=== PATIENT | female | born 1965 | race Caucasian/White ===

== ENCOUNTER 2024-11-02 17:57 | Inpatient (IN) | payer BC, SELFPAY ==
[2024-11-02] VITALS (8 sets, daily range): BP systolic 104–134; BP diastolic 56–79; BMI 28.4; BMI 27.5
[2024-11-02 15:06] LABS: % Basophils 0.6 % (0-2); % Eosinophils 1.7 % (0-6); % Immature Granulocytes 0.5 % (0-0.5); % Lymphocytes 28.9 % (20.5-51.1); % Monocytes 4.4 % (1.7-9.3); % Neutrophils 63.9 % (42.2-75.2); Absolute Eosinophils 0.1 10^3/uL (0-0.7); Absolute Lymphocytes 1.9 10^3/uL (1.2-3.4); Absolute Monocytes 0.3 10^3/uL (0.1-0.6); Absolute Neutrophils 4.1 10^3/uL (1.4-6.5); Hematocrit 20.7 % (37.0-47.0); Hemoglobin 6.6 g/dL (12.0-16.0); Mean Corp Hgb Conc. 31.9 g/dL (33.0-37.0); Mean Corpuscular Hgb 33.2 pg (27.0-31.0); Mean Platelet Volume 8.2 fL (7.4-10.4); Nucleated Red Blood Cells % 0 %; Platelet Count 373 10^3/uL (130-400); Red Blood Cell Count 1.99 10^6/uL (4.20-5.40); Red Cell Dist. Width 17.3 % (11.5-14.5); White Blood Cell Count 6.4 10^3/uL (4.8-10.8)
[2024-11-02 15:12] LABS: ALT (SGPT) 28 U/L (0-35); AST (SGOT) 49 U/L (14-36); Albumin 4.3 g/dl (3.5-5.0); Alkaline Phosphatase 64 U/L (38-126); Blood Urea Nitrogen 21 mg/dl (7-17); Calcium 9.5 mg/dl (8.4-10.2); Carbon Dioxide 28 mmol/L (22-30); Chloride 105 mmol/L (98-107); Estimated Creatinine Clearance 65 ml/min; Glucose 112 mg/dl (70-99); Potassium 3.9 mmol/L (3.5-5.1); Sodium 139 mmol/L (135-145); Total Bilirubin 2.5 mg/dl (0.2-1.3); Total Protein 6.5 g/dl (6.3-8.2); eGFR > 60.00
--- NOTE | 2024-11-02 15:51 | ED.GENMED ---
History of Present Illness
General
Chief Complaint: Abnormal Lab Value
Source: patient
Exam Limitations: none
Time Seen by Provider: 11/02/24 14:09
History of Present Illness
History of Present Illness:
58yoF with a history of anemia presenting for evaluation of an abnormal outpatient lab. Patient had preadmission testing earlier today for a cardiac catheterization scheduled for November 16. She was found to have a hemoglobin of 6.7 and was called
and advised to report to the ED for evaluation. Hemoglobin was 11.1 on last CBC on 06/06/2024. Patient is symptomatic fatigue and generalized weakness. This initially started end of June into July. She also reports dyspnea primarily with
walking up steps and intermittent chest pains. She had an outpatient stress test about 10 days ago and there were some irregularities seen which was the reason for the planned cardiac catheterization. Patient denies any hematochezia, melena,
hematuria. No prior history of anemia.
Phy Exam
General Physical Exam
General Presentation: well appearing and no apparent distress
General age: appears stated age
General Skin: warm and dry
General Habitus: normal
General Mental: alert
ENT Exam
ENT Exam: normocephalic
Cardiovascular Exam
Cardiovascular Exam: regular rate/rhythm and no murmur
Pulmonary Exam
Pulmonary Exam: lungs clear, no respiratory distress, no rales, no crackles, no rhonchi and no wheezing
Gastrointestinal Exam
Stool: other (Stool brown. Hemoccult testing negative.)
Lizzie Coma Scale
Eye Opening: Spontaneous
Verbal Response: Oriented
Motor Response: Obeys Commands
GCS Total Score: 15
Skin Exam
Skin Exam: normal color and warm/dry
Psychiatric Exam
Psychiatric Exam: normal mood/affect
Course
Orders/Labs/Results
Orders:
Orders
11/02/24 14:51
Atypical Antibody Screen Urgent
BBK Wristband Number:
Type+Screen Urgent
Complete Blood Count/With Diff Urgent
Comprehensive Metabolic Panel Urgent
Ferritin Urgent
Comment: ADD ON
Folate Urgent
Comment: ADD ON
Iron Urgent
Comment: ADD ON
Total Iron Binding Urgent
Comment: ADD ON
Vitamin B12 Urgent
Comment: ADD ON
11/02/24 Dinner
Regular
At Your Request: Full Participation
11/02/24 15:10
ABO2 Urgent
BBK Wristband Number:
Associate notified that ABO2 has been ordered: [id number]
Date: 11/02/24
Time: 15:02
Prison Warden ID: [id number]
11/02/24 15:51
Blood Bank Products [* Blood Bank Products] Urgent
Blood Bank Products: *Packed RBC Leuko(PRBC's)
Quantity: 1
Transfuse Today: Yes
Reason: Anemia
11/02/24 16:14
Admit/Transfer Patient As Directed
Co-Sign Provider:
Level of Care: Inpatient admission
Assign to:: Telemetry
Physician / Group: clara
Diagnosis: anemia
Reason for Telemetry: Chest Pain syndromes
Date to Stop Telemetry: 11/04/24
Time to Stop Telemetry: 11:00
Reason for Hospitalization: anemia
Expected length of stay greater than two midnights?: Yes
ELOS- Estimated Length of Stay in days: 2
I certify the patient meets the requirements for IP care: Yes
11/02/24 16:15
Code Status As Directed
Resuscitation Status: Full Code
PRN Pain Medication Management As Directed
May give lesser potent ordered pain med per pt: Yes
preference::
Protocol:: Medication orders for pain may be administered in a
manner that supports deferring to patient preference
when the pt is:
- Requesting an ordered lesser potent pain medication.
Least to most potent pain medications are defined
as: acetaminophen < NSAID < tramadol < opioids
(morphine, oxycodone, hydromorphone).
- Requesting a lesser dose of the same medication IF
ORDERED.
- Requesting a less intrusive route of administration
if both routes are prescribed by the provider (PO <
IV).
11/02/24 16:21
Add On- LAB Urgent
Tests Added?: ferritin, folate, iron, TIBC, B12
GASTROINTESTINAL CONSULT Routine
Consulting Provider: Josias Pearce
Was physician already notified: Yes
11/02/24 18:12
Activity As Directed
Activity Level: As Tolerated
Pneumatic Compression Sleeves As Directed
Type: Knee high
Vital Signs As Directed
Frequency: Per unit guidelines
DX Deep Vein Thrombosis Video Routine
11/02/24 22:00
Cyclobenzaprine HCl [Flexeril] 10 mg PO HS
Valacyclovir HCl [Valtrex] 500 mg PO HS
11/03/24 Breakfast
NPO
Allow oral meds: Yes
Allow clear liquids: Sips of Clears
Complete Blood Count/With Diff IN AM
Comprehensive Metabolic Panel IN AM
11/03/24 08:00
Amlodipine [Norvasc] 2.5 mg PO DAILY
Atorvastatin [Lipitor] 10 mg PO DAILY
ISOSORBIDE MONOnitrate ER [Imdur (Extended Release)] 15 mg PO DAILY
Losartan/Hydrochlorothiazide [Hyzaar 100-25 Tablet] 1 tab PO DAILY
11/04/24 11:00
DC Protocol for Telemetry ONCE
Abnormal Lab Results
11/02/24
14:51
RBC 1.99 L 10^6/uL
(4.20-5.40)
Hgb 6.6 L* g/dL
(12.0-16.0)
Hct 20.7 L* %
(37.0-47.0)
MCV 104.0 H fL
(81.0-99.0)
MCH 33.2 H pg
(27.0-31.0)
MCHC 31.9 L g/dL
(33.0-37.0)
RDW 17.3 H %
(11.5-14.5)
BUN 21 H mg/dl
(7-17)
Glucose 112 H mg/dl
(70-99)
Total Bilirubin 2.5 H mg/dl
(0.2-1.3)
AST 49 H U/L
(14-36)
Folate > 20.0 H ng/ml
(2.76-20)
SNEHA, Complement 1+ A
(Negative)
Crossmatch IS Only See Detail
11/02/24 14:51
11/02/24 14:51
Vital Signs
Initial and Last Documented VS:
Initial Vital Signs
Temp Pulse Resp BP Pulse Ox
97.8 F 98 16 122/73 100
11/02/24 12:40 11/02/24 12:40 11/02/24 12:40 11/02/24 12:40 11/02/24 12:40
Last Documented Vital Signs
Temp Pulse Resp BP Pulse Ox
98.6 F 86 16 104/56 95
11/02/24 23:05 11/02/24 23:05 11/02/24 23:05 11/02/24 23:05 11/02/24 23:05
MDM/Problems Addressed
Differential Diagnosis Includes:
58yoF presenting for a hemoglobin of 6.7 found on routine outpatients labs. C/o fatigue and exertional dyspnea x several months. Denies bleeding. She is well-appearing no acute distress. She is afebrile and hemodynamically stable. Stool is brown
and Hemoccult negative. Differential diagnosis includes but is not limited to: Blood loss anemia, iron deficiency anemia, anemia of chronic disease, hemolytic anemia
Initial ED plan: Lab work obtained in triage and repeat hemoglobin is 6.6. Consent obtained and 1 unit PRBCs ordered for transfusion. Will admit for further evaluation and management.
*Critical Care Note
Total Time (30-74mins, 75-104mins- exclusive of procedures): Not Applicable
ED Attending Note
-
Portions of this chart may have been created with voice recognition software.� Occasional wrong word or��sound alike� substitutions may have occurred due to the inherent limitations of voice recognition software.
Discharge Plan
Departure
Patient Disposition: Admit
Date of Disposition: 11/02/24
Time of Disposition: 15:55
Presentation/result/management discussed w/ accepting MD/DO: Hospitalist
Discharge Problem:
Symptomatic anemia
Interventions
Interventions:
*General Assessment Last Done: 11/02/24 14:42
*Neglect/Abuse Screening Last Done: 11/02/24 12:43
ED- Fall Risk Assessment Last Done: 11/02/24 14:56
*Nursing Disposition Last Done: 11/02/24 18:02
Discharge Date and Time
Discharge Date/Time: 11/02/24 18:03
--- NOTE | 2024-11-02 16:17 | HPS.HSE ---
Addendum entered and electronically signed by Mariajose Duran MD 11/02/24 16:21:
NPO past midnight.
Original Note:
Family Physician
-
Family Physician: Janae Valadez DO
Chief Complaint
-
anemia
History of Present Illness
58-year-old female past medical history of hypertension, presenting with abnormal outpatient labs. She had preadmission testing earlier today for cardiac catheterization scheduled for November 16. She was found to have hemoglobin of 6.7 and told to
come to the emergency room. Hemoglobin was 11.1 on 06/06. Patient has symptomatic fatigue and generalized weakness which started around end of June/July. She has shortness of breath when walking up steps intermittent chest pain, dizziness.
She saw her rn house supervisor who noted abnormal EKG and ordered outpatient stress test 10 days ago and there were some irregularities seen which was the reason for the planned cardiac catheterization. She denies any blood in the stool or dark stool or
changes in her bowel habits. She denies any history of cardiac problems.
Patient states her primary care physician gave her phentermine for weight loss which she has recently stopped taking. She denies any further weight loss. She denies abdominal pain or nausea or vomiting.
She had heavy menstrual bleeding when she was younger.
Patient states that she had a endoscopy in May of last year for occasional acid reflux symptoms which was unremarkable. She had a colonoscopy in December of this year for colon cancer screening. No abnormalities were seen. She has had multiple
family members including her father and grandfather who have had colon cancer.
She occasionally takes naproxen for migraines but this is very rare.
She denies smoking. She drinks alcohol occasionally.
Medical History
Past Medical History
Past Medical History: Reports Other (hypertension, arthritis )
Past Surgical History: Reports Cholecystectomy
Social History
Tobacco: Non-smoker
Alcohol: Occasional
Drug: None
Family History
Family History: Other (colon cancer )
Allergies / Home Medications
Allergies reflects when Allergies were last updated in [employer].
Home Medications with original date entered in [employer]
Allergy/Medication List:
Allergies
Allergy/AdvReac Type Severity Reaction Status Date / Time
Nuts Allergy congestion, Uncoded 11/02/24 09:13
eye
itching,
headache
Home Medications
amlodipine 2.5 mg tablet 2.5 mg PO DAILY 10/30/24
aspirin 81 mg tablet,delayed release 81 mg PO DAILY 10/30/24
atorvastatin 10 mg tablet 10 mg PO DAILY 10/30/24
cyclobenzaprine 10 mg tablet 10 mg PO HS 10/30/24
losartan 100 mg-hydrochlorothiazide 25 mg tablet 1 tab PO DAILY 10/30/24
meloxicam 15 mg tablet 15 mg PO DAILY 10/30/24
valacyclovir 500 mg tablet 500 mg PO HS 10/30/24
isosorbide mononitrate 30 mg tablet,extended release 24 hr 15 mg PO DAILY 11/02/24
Review of Systems
-
History Source: Patient
A 12 point ROS was completed and negative except as noted: Yes
Constitutional: Reports No Symptoms
EENT: Reports No Symptoms
Respiratory: Reports No Symptoms
Cardiac: Reports No Symptoms
Abdomen/GI: Reports See HPI
: Reports No Symptoms
Musculoskeletal: Reports No Symptoms
Skin: Reports No Symptoms
Neurological: Reports No Symptoms
Endocrine: Reports No Symptoms
Hematologic/Lymphatic: Reports No Symptoms
Psych: Reports No Symptoms
Physical Exam
Vital Signs
Vital Signs
Temp Pulse Resp BP Pulse Ox
97.8 F 98 18 122/73 100
11/02/24 12:40 11/02/24 12:40 11/02/24 15:10 11/02/24 12:40 11/02/24 12:40
Physical Exam
General: Well Developed, Well Nourished and No Apparent Distress
HEENT: NormoCephalic, Moist mucous membranes and Atraumatic
Respiratory: Clear
Cardiac: S1/S2 and Regular Rhythm; No Murmur or Rub
GI: Soft, Non Tender, Non Distended and Normal Bowel Sounds; No Organomegaly
Rectal: Deferred by Provider
Musculoskeletal: No Clubbing, No Cyanosis and No Edema
Skin: No Rash
Neuro: Nonfocal/grossly intact
Laboratory Results
-
11/02/24 14:51
11/02/24 14:51
Laboratory Results
Total Bilirubin 2.5 mg/dl (0.2-1.3) H 11/02/24 14:51
AST 49 U/L (14-36) H 11/02/24 14:51
ALT 28 U/L (0-35) 11/02/24 14:51
Alkaline Phosphatase 64 U/L (38-126) 11/02/24 14:51
Data Reviewed
-
Lab Data: Labs Reviewed by me
Old Records: Reviewed
Impression/Plan
-
IMPRESSION:
PLAN:
# Acute symptomatic macrocytic anemia likely GI blood loss
-Hemoccult negative
-Hemoglobin of 6.6
-1 unit of blood
-Check iron studies, B12 and folate
-Hold meloxicam listed as daily but patient states she takes occasionally
-Hold aspirin
# Abnormal stress test likely secondary to demand ischemia from anemia versus underlying CAD
-EKG today shows normal sinus rhythm
-Cardiac catheterization planned for November 16 by her rn house supervisor
-No history of heart problems
-Continue isosorbide mononitrate
Essential hypertension
-Continue amlodipine
-Continue losartan/hydrochlorothiazide
-Continue statin
Arthritis
-Continue cyclobenzaprine
Herpes prevention
-continue valtrex
Full code
DVT prophylaxis�SCDs
Regular diet, n.p.o. past midnight
[2024-11-02 16:36] LABS: Iron 151 ug/dl (37-170)
[2024-11-02 16:45] LABS: Percent Saturation 48 % (20-50); Total Iron Binding Capacity 312 ug/dl (265-497)
--- NOTE | 2024-11-02 18:00 | PTCARENOTE ---
ED informed this RN that blood bank unable to deliver blood to unit due to being unable to find a correct match.
[2024-11-02 18:05] LABS: Folate > 20.0 ng/ml (2.76-20); Vitamin B12 451 pg/ml (239-931)
--- NOTE | 2024-11-02 18:16 | PTCARENOTE ---
Received pt from ED via stretcher. AAOx3. Pt ambulated to bed x1. Pt c/o headache, able to tolerate. radiation monitor placed. Assessed and oriented to room. Call gaines within close reach. Pt verbalized understanding of call gaines.
[2024-11-02] MEDS: VALTREX 500 MG PO (21:12)
[2024-11-02] MEDS: FLEXERIL 10 MG PO (21:13)
[2024-11-03] VITALS (7 sets, daily range): BP systolic 102–155; BP diastolic 51–99
--- NOTE | 2024-11-03 05:28 | W.PN.UPDATE ---
Update Note
Progress Note Update
Here with anemia, got o/p labs and showed a low hgb. Was to receive one unit of blood in ED for a hgb of 6.7 .. ended up not being able to find a match for her in the blood bank... her body is having a +compliment, a significant inflammatory
response with what's she's trying to match with her testing ... blood bank said she called the pathologist and only if it's ABSOLUTELY necessary for this patient to get the unit of blood ordered, she NEEDS to use a blood warmer, and even then there
is a likelihood that she'll have DIC. So I held the unit of blood and consulted hematology. Her symptoms are with exertion so asked nursing to keep her in bed and to use a commode with supervision.
--- NOTE | 2024-11-03 08:11 | CON.ONC ---
Impression
Impression
Subacute hemolytic anemia
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
Plan
Plan
Transfused least incompatible PRBC using blood warmer and Tylenol and Benadryl premedication.
Based on the review of the blood bank analysis, this does not appear to be a warm autoimmune hemolytic anemia (SNEHA negative and 1+ SNEHA complement) but instead a cold agglutinin induced hemolysis.
Typically, prednisone is not utilized as it is typically ineffective in patients with cold agglutinin disease.
I will however start prednisone just pending the further workup. Low threshold to discontinue if cold agglutinin titer is positive.
Check cold agglutinin titer and peripheral blood flow cytometry as lymphoproliferative disorders can often be causes of cold agglutinin disease.
Prolonged inpatient hospitalization unlikely to be needed but reasonable to continue hospitalization for the next 24 to 48 hours just to ensure Hgb stabilizes to improves with warm PRBC transfusion.
There does not appear to be any evidence of GI blood loss, active bleeding, or iron deficiency. Serum ferritin = 172. Patient is being prepped for endoscopy. Not clear that she requires additional GI evaluation as done previously this year.
We will follow with you.
Patient History
History of Present Illness
CC: Symptomatic anemia
HPI: 58-year-old female with chest pain and shortness of breath over the past few months. Initially she had chest pain that seem to be consistent with reflux prompting an endoscopy 06/01 that was unremarkable. She also had a colonoscopy for colon
cancer screening in December 2023, also unremarkable.. She then developed dyspnea with exertion and progressive fatigue since July. She was noted by cardiology to have an abnormal ECG and had an abnormal stress test. A cardiac
catheterization was being arranged for November 16 and catheterization blood testing was done which revealed a unexpected hemoglobin value = 6.7. Prior CBC on 06/06 Hgb = 11.1. No evidence of bleeding noted. No melena or BRBPR. Only new medication
that was started recently was phentermine for weight loss started by her PCP which she has recently stopped taking. She denies any further weight loss. She denies abdominal pain or nausea or vomiting. She had heavy menstrual bleeding when she was
younger but is no longer menstruating.
Blood transfusion was ordered but she had a cold antibody and transfusion was not given because of potential concerns for reaction.
Past-Medical/Surgical History
PMH:hypertension, arthritis
PSH: Cholecystectomy
SH: Occasional alcohol. Denies smoking
FH: Colon cancer in father and grandfather
Patient Medication
�Medication �Instructions �Recorded �Confirmed �Last Taken �Type
amlodipine 2.5 mg tablet 2.5 mg PO DAILY 10/30/24 11/02/24 11/02/24 History
aspirin 81 mg tablet,delayed 81 mg PO DAILY 10/30/24 11/02/24 11/02/24 History
release
atorvastatin 10 mg tablet 10 mg PO DAILY 10/30/24 11/02/24 11/02/24 History
cyclobenzaprine 10 mg tablet 10 mg PO HS 10/30/24 11/02/24 11/01/24 History
losartan 100 1 tab PO DAILY 10/30/24 11/02/24 11/02/24 History
mg-hydrochlorothiazide 25 mg tablet
meloxicam 15 mg tablet 15 mg PO DAILY 10/30/24 11/02/24 11/02/24 History
valacyclovir 500 mg tablet 500 mg PO HS 10/30/24 11/02/24 11/01/24 History
isosorbide mononitrate 30 mg 15 mg PO DAILY 11/02/24 11/02/24 11/02/24 History
tablet,extended release 24 hr
Active Medications
Generic Name Dose Route Start Last Admin
Trade Name Freq PRN Reason Stop Dose Admin
Amlodipine Besylate 2.5 mg 11/03/24 08:00
Amlodipine 2.5 Mg Tablet PO 12/01/24 07:59
DAILY KARYN
Atorvastatin Calcium 10 mg 11/03/24 08:00
Atorvastatin (Lipitor) 10 Mg Tablet PO 12/01/24 07:59
DAILY KARYN
Cyclobenzaprine HCl 10 mg 11/02/24 22:00 11/02/24 21:13
Cyclobenzaprine 10 Mg Tablet PO 11/30/24 21:59 10 mg
HS KARYN Administration
HCTZ/Losartan Potassium 1 tab 11/03/24 08:00
Losartan (100 Mg)/Hydrochlorothiazide (25 Mg) Tablet PO 12/01/24 07:59
DAILY KARYN
Isosorbide Mononitrate 15 mg 11/03/24 08:00
Isosorbide Mononitrate 30 Mg Extended Release Tablet PO 12/01/24 07:59
DAILY KARYN
Sodium Chloride 0 flush 11/02/24 19:00
Sodium Chloride 0.9% (Flush) Syringe IV 11/30/24 18:59
PER PROTOCOL KARYN
Valacyclovir HCl 500 mg 11/02/24 22:00 11/02/24 21:12
Valacyclovir Hcl 500 Mg Tablet PO 11/12/24 21:59 500 mg
HS KARYN Administration
Review of Systems
-
Constitutional: Reports Fatigue
EENT: Reports No Symptoms
Respiratory: Reports Trouble Breathing
Cardiac: Reports Chest Pain
Physical Exam
-
General: Well Developed, Well Nourished and No Apparent Distress
HEENT: Negative Jaundice
Cardiology: Normal Sinus Rhythm, S1 and S2
Pulmonary: Clear; Negative Wheezes or Rhonchi
GI: Soft, Normal Bowel Sounds and No Organomegaly; Negative Distended, Hepatomegaly or Spleenomegaly
Musculoskeletal: No Clubbing, No Cyanosis and No Edema
Extremities: No C/C/E
Neurology: Non Focal
Skin: Warm
Hematologic / Lymphatic: No Lymphadenopathy
Psych: Calm
Labs
Lab Results
WBC 6.4 10^3/uL (4.8-10.8) 11/02/24 14:51
RBC 1.99 10^6/uL (4.20-5.40) L 11/02/24 14:51
Hgb 6.6 g/dL (12.0-16.0) L* 11/02/24 14:51
Hct 20.7 % (37.0-47.0) L* 11/02/24 14:51
MCV 104.0 fL (81.0-99.0) H 11/02/24 14:51
MCH 33.2 pg (27.0-31.0) H 11/02/24 14:51
MCHC 31.9 g/dL (33.0-37.0) L 11/02/24 14:51
RDW 17.3 % (11.5-14.5) H 11/02/24 14:51
Plt Count 373 10^3/uL (130-400) D 11/02/24 14:51
MPV 8.2 fL (7.4-10.4) 11/02/24 14:51
Abs Immat Gran (auto) 0.0 10^3/uL (0-0.05) 11/02/24 14:51
Absolute Neuts (auto) 4.1 10^3/uL (1.4-6.5) 11/02/24 14:51
Absolute Lymphs (auto) 1.9 10^3/uL (1.2-3.4) 11/02/24 14:51
Absolute Monos (auto) 0.3 10^3/uL (0.1-0.6) 11/02/24 14:51
Absolute Eos (auto) 0.1 10^3/uL (0-0.7) 11/02/24 14:51
Absolute Basos (auto) 0.0 10^3/uL (0-0.2) 11/02/24 14:51
Immature Gran % 0.5 % (0-0.5) 11/02/24 14:51
Neutrophils % 63.9 % (42.2-75.2) 11/02/24 14:51
Lymphocytes % 28.9 % (20.5-51.1) 11/02/24 14:51
Monocytes % 4.4 % (1.7-9.3) 11/02/24 14:51
Eosinophils % 1.7 % (0-6) 11/02/24 14:51
Basophils % 0.6 % (0-2) 11/02/24 14:51
Creatinine 1.0 mg/dL (0.6-1.0) 11/02/24 14:51
Vital Signs
Vital Signs
Temp Pulse Resp BP Pulse Ox
98.2 F 80 18 108/68 98
11/03/24 07:00 11/03/24 07:00 11/03/24 07:00 11/03/24 07:00 11/03/24 07:00
--- NOTE | 2024-11-03 08:13 | CON.GI ---
Addendum entered and electronically signed by Sincere Reece MD 11/03/24 17:51:
I saw and examined the patient, and discussed management with the resident. I reviewed the resident's note and agree with the documented findings and plan of care.
58 year old female called in for Hgb of 6.7. She was undergoing cardiac evaluations for dyspnea/?angina but seems this was related to symptomatic anemia. GI being consulted for evaluation of her anemia. Denies s/s of overt GI bleeding, and had
unremarkable EGD/colonoscopy this year. 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 Given this, will defer endoscopic evaluations, and will s/o.
Original Note:
Consultation
-
Date/Time Consultation Requested: 11/02/2024 16: 21
Date/Time Consultation Performed: 11/03/2024 11: 33
Requesting Provider: Mariajose Duran MD
Performing Provider: Sincere Reece MD
Reason for Consultation: Anemia
Medical History
Chief Complaint / HPI
Chief Complaint: Dyspnea on exertion, fatigue
History of Present Illness:
58-year-old female with PMH of essential hypertension, and chest pain who presented to ED on 11/02/2022 for with C/O of LEUNG, fatigue after being found to have abnormal labs. Patient reports that 3 months ago, she started having chest pain,
generalized weakness and fatigue with SOB/dyspnea while walking up steps. She was prescribed nitroglycerin and aspirin by her hooker off however symptoms continued to worsen. She was further evaluated and had an abnormal outpatient EKG and
stress test. Patient also reports that she had a cardiac ultrasound which was also unremarkable. A preadmission lab work was ordered for cardiac cath and she was incidentally found to have a hemoglobin of 6.7 which prompted her admission. Of note,
her hemoglobin was 11.1 on 06/06. Gastroenterology was consulted for further evaluation and management of patient's anemia. There is a history of colon cancer in patient's father and grandfather however, Patient had colonoscopy in December 2023 and
an endoscopy in May 2024 to evaluate for reflux which were both unremarkable. She denies hematochezia, history of melena, anemia, abdominal pain, hematuria, heart murmurs, nausea, vomiting or diarrhea. Patient does not smoke, but drink alcohol
socially.
Past Medical History
Past Medical History: HTN and Other (Osteoarthritis)
Past Surgical History: Cholecystectomy
Social History
Tobacco: Non-Smoker
Alcohol: Occasional
Drug: None
Family History
Family History: Cancer (Colon cancer)
Allergies / Home Medications
Allergy/AdvReac Type Severity Reaction Status Date / Time
nut - unspecified Allergy congestion, Verified 11/02/24 18:27
eye
itching,
headache
�Medication �Instructions �Recorded
amlodipine 2.5 mg tablet 2.5 mg PO DAILY 10/30/24
aspirin 81 mg tablet,delayed 81 mg PO DAILY 10/30/24
release
atorvastatin 10 mg tablet 10 mg PO DAILY 10/30/24
cyclobenzaprine 10 mg tablet 10 mg PO HS 10/30/24
losartan 100 1 tab PO DAILY 10/30/24
mg-hydrochlorothiazide 25 mg tablet
meloxicam 15 mg tablet 15 mg PO DAILY 10/30/24
valacyclovir 500 mg tablet 500 mg PO HS 10/30/24
isosorbide mononitrate 30 mg 15 mg PO DAILY 11/02/24
tablet,extended release 24 hr
Review of Systems
-
History Source: Patient
Constitutional: Denies Fever or Weight Loss
EENT: Reports No Symptoms
Respiratory: Reports No Symptoms
Cardiac: Denies Chest Pain or Palpitations
Abdomen/GI: Denies Abdominal Pain, Nausea, Vomiting, Diarrhea, Constipated, Bloody Stools or Black Stools
: Reports No Symptoms
Skin: Denies Rash
Neurological: Denies Dizzy or Weakness
Endocrine: Reports No Symptoms
Hematologic/Lymphatic: Reports No Symptoms
Vital Signs
Temp Pulse Resp BP Pulse Ox
98.2 F 80 18 108/68 98
11/03/24 07:00 11/03/24 07:00 11/03/24 07:00 11/03/24 07:00 11/03/24 07:00
Physical Exam
Exam
General: No Apparent Distress and Comfortable
HEENT: Atraumatic
Respiratory: Clear and Non Labored Respirations
Cardiac: S1/S2 and Regular Rhythm
GI: Soft, Non Tender, Non Distended and Normal Bowel Sounds
Musculoskeletal: No Clubbing, No Cyanosis and No Edema
Skin: Warm
Neuro: Awake, AO x 3 and Nonfocal/Grossly Intact
Hematologic/Lymphatic: No Lymphadenopathy
Psych: Calm
Results
WBC 6.4 10^3/uL (4.8-10.8) 11/02/24 14:51
Hgb 6.6 g/dL (12.0-16.0) L* 11/02/24 14:51
Hct 20.7 % (37.0-47.0) L* 11/02/24 14:51
MCV 104.0 fL (81.0-99.0) H 11/02/24 14:51
Plt Count 373 10^3/uL (130-400) D 11/02/24 14:51
Absolute Neuts (auto) 4.1 10^3/uL (1.4-6.5) 11/02/24 14:51
Sodium 139 mmol/L (135-145) 11/02/24 14:51
Potassium 3.9 mmol/L (3.5-5.1) 11/02/24 14:51
Chloride 105 mmol/L (98-107) 11/02/24 14:51
Carbon Dioxide 28 mmol/L (22-30) 11/02/24 14:51
BUN 21 mg/dl (7-17) H 11/02/24 14:51
Creatinine 1.0 mg/dL (0.6-1.0) 11/02/24 14:51
Calcium 9.5 mg/dl (8.4-10.2) 11/02/24 14:51
Total Bilirubin 2.5 mg/dl (0.2-1.3) H 11/02/24 14:51
AST 49 U/L (14-36) H 11/02/24 14:51
ALT 28 U/L (0-35) 11/02/24 14:51
Alkaline Phosphatase 64 U/L (38-126) 11/02/24 14:51
Assessment / Plan
-
Impression: 58-year-old female who came in for preadmission workup for cardiac catheterization and was found to have hemoglobin of 6.7. Denies hematochezia, history of melena, anemia, abdominal pain, hematuria, heart murmurs, nausea, vomiting or
diarrhea.
Assessment/plan:
#Subacute symptomatic hemolytic anemia
-Suspect cold agglutinin-induced disease; warm agglutinin autoimmune disease unlikely with negative SNEHA.
-There is no history of melena, coffee-ground emesis, or any other active GI bleeding to necessitate further GI workups.
-Iron panel completely normal.
-LDH elevated, haptoglobin and reticulocyte count pending.
-Cold agglutinin titers pending.
-1U of least incompatible PRBC transfusion with blood warmer, Tylenol and Benadryl premedication per hematology.
-Fall precautions.
-
-
Thank you for consultation and allowing me to participate in the patient's care. Please call the marketing communications assistant GI physician during the after hours with any questions or concerns.
[2024-11-03 08:29] LABS: ALT (SGPT) 24 U/L (0-35); AST (SGOT) 37 U/L (14-36); Alkaline Phosphatase 65 U/L (38-126); Blood Urea Nitrogen 19 mg/dl (7-17); Calcium 9.6 mg/dl (8.4-10.2); Carbon Dioxide 27 mmol/L (22-30); Chloride 105 mmol/L (98-107); Direct Bilirubin 0.3 mg/dl (0.0-0.4); Estimated Creatinine Clearance 71 ml/min; Glucose 96 mg/dl (70-99); LDH 516 U/L (120-246); Sodium 139 mmol/L (135-145); Total Bilirubin 1.2 mg/dl (0.2-1.3); Total Protein 6.2 g/dl (6.3-8.2); eGFR > 60.00
[2024-11-03 08:37] LABS: Potassium 4.5 mmol/L (3.5-5.1)
[2024-11-03 09:52] LABS: % Eosinophils 3.2 % (0-6); % Immature Granulocytes 0.8 % (0-0.5); % Lymphocytes 34.6 % (20.5-51.1); % Monocytes 5.6 % (1.7-9.3); % Neutrophils 54.8 % (42.2-75.2); Absolute Basophils 0.1 10^3/uL (0-0.2); Absolute Eosinophils 0.2 10^3/uL (0-0.7); Absolute Lymphocytes 1.7 10^3/uL (1.2-3.4); Absolute Monocytes 0.3 10^3/uL (0.1-0.6); Absolute Neutrophils 2.7 10^3/uL (1.4-6.5); Hematocrit 21.4 % (37.0-47.0); Hemoglobin 6.7 g/dL (12.0-16.0); Mean Corp Hgb Conc. 31.3 g/dL (33.0-37.0); Mean Corpuscular Hgb 32.8 pg (27.0-31.0); Mean Corpuscular Volume 104.9 fL (81.0-99.0); Mean Platelet Volume 8.5 fL (7.4-10.4); Nucleated Red Blood Cells % 0 %; Platelet Count 377 10^3/uL (130-400); Red Blood Cell Count 2.04 10^6/uL (4.20-5.40); Red Cell Dist. Width 18.4 % (11.5-14.5)
[2024-11-03] MEDS: LIPITOR 10 MG PO (10:38)
[2024-11-03] MEDS: DELTASONE 80 MG PO (10:39)
[2024-11-03] MEDS: TYLENOL 650 MG PO (10:39)
[2024-11-03] MEDS: BENADRYL 25 MG PO (10:39)
[2024-11-03 13:16] LABS: Reticulocyte Count 11.6 % (0.4-2.8)
--- NOTE | 2024-11-03 13:21 | W.PN.HOSP.TC ---
Today's Communication/Plan
-
H&H post blood transfusion and d/c if H&H OK
Assessment / Plan
Assessment / Plan
pt is a 58 year old female
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
-Hemoglobin of 6.6
Abnormal stress test likely secondary to demand ischemia from anemia versus underlying CAD--Cardiac catheterization planned for November 16 by her pickle maker--No history of heart problems--Continue isosorbide mononitrate
Essential hypertension--Continue amlodipine--Continue losartan/hydrochlorothiazide--Continue statin
Arthritis--Continue cyclobenzaprine
Herpes prevention--continue valtrex
code status--Full code
DVT prophylaxis�SCDs
Anticipated Discharge: Today
Subjective/Interval History
-
Date of Service: November 03, 2024
pt would like to go home after blood transfusion
Objective Data
-
Labs:
Laboratory Results
11/03/24
07:12
WBC 5.0
Hgb 6.7 L*
Hct 21.4 L
Plt Count 377
Sodium 139
Potassium 4.5
Chloride 105
Carbon Dioxide 27
BUN 19 H
Creatinine 0.9
Glucose 96
Calcium 9.6
Total Bilirubin 1.2 D
AST 37 H
ALT 24
Alkaline Phosphatase 65
Vital Signs:
max temp for 24 hours
11/03/24
07:00
Temp 98.2 F
Vital Signs
Temp Pulse Resp BP Pulse Ox
98.2 F 91 16 134/76 100
11/03/24 11:35 11/03/24 11:35 11/03/24 11:35 11/03/24 11:35 11/03/24 11:00
I&O
11/02/24 11/03/24 11/04/24
06:59 06:59 06:59
Intake Total 480 / 480 0 / 0
Balance 480 / 480 0 / 0
Review of Systems
-
All other systems: Reviewed and negative
Physical Exam
-
General: Well Developed, Well Nourished and No Apparent Distress
HEENT: Normocephalic and Atraumatic
Respiratory: Clear to Auscultation; Negative Wheezes or Rhonchi
Cardiac: Regular Rhythm and S1/S2; Negative Murmur
GI: Soft, Nontender, Nondistended and Normal Bowel Sounds
Musculoskeletal: No Clubbing, No Cyanosis and No Edema
Skin: Warm
Neuro: Awake and Alert
Psych: Calm
[2024-11-03] MEDS: HYZAAR 100-25 TABLET 1 TAB PO (14:48)
[2024-11-03] MEDS: IMDUR (EXTENDED RELEASE) 15 MG PO (14:48)
[2024-11-03] MEDS: NORVASC 2.5 MG PO (14:48)
[2024-11-03 18:23] LABS: Hematocrit 25.7 % (37.0-47.0); Hemoglobin 8.7 g/dL (12.0-16.0)
--- NOTE | 2024-11-03 18:43 | W.DCSUMMARY ---
Discharge Summary
Discharge Data
Date of Admission: 11/02/24
Date of Discharge: 11/03/24
Total time spent discharging patient (in min): 33
-
Pending Results: No
Hospital Course
Primary care physician : Janae Valadez
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
Chronic Discharge diagnosis : Abnormal stress test, essential hypertension, arthritis
Hospital Course : Patient was a 58-year-old female with a history of essential hypertension who presented with abnormal outpatient labs. She is having a cardiac catheterization on November 16 for an abnormal stress test and had preadmission labs done
prior. She was found to have a hemoglobin of 6.7. On June 06 her hemoglobin was 11.1. Patient had symptomatic fatigue and generalized weakness starting at the end of June beginning of July. She has shortness of breath on walking up steps
and intermittent chest pain. Senior Production Planner noted an abnormal EKG and ordered outpatient stress test. There were some irregularities which was the reason for the planned cardiac catheterization. Patient had heavy menstrual bleeding when she was
younger but denies any currently. She also had a workup in May of endoscopy and colonoscopy both of which were normal. Patient was admitted.
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 Patient was seen in consultation by GI and hematology. Patient had a normal endoscopy and colonoscopy within the past year and GI does not feel the need to pursue any
further workup. Hematology is in agreement. Patient is receiving packed red blood cells. They do suspect subacute hemolytic anemia due to cold agglutinin disease. She was started on steroids and should continue those until she is seen by
hematology. Blood transfusion through a blood warmer would help. Hemoglobin posttransfusion is up to 8.7. Patient is stable for discharge at this time.
Problem #2: All other medical issues. These include Abnormal stress test, essential hypertension, arthritis. These medical issues were stable during her hospitalization. Medications were continued as able.
Patient is stable for discharge home at this time. If there are any questions regarding this dictation or her hospital stay, please not hesitate to call. Our office number is [phone].
Discharge Plan
-
Patient Disposition: Home (Routine Discharge)
Discharge Diagnosis/Procedures: Acute symptomatic hemolytic anemia secondary to cold agglutinin disease, abnormal stress test likely due to demand ischemia from anemia, essential hypertension, arthritis, history of herpes
Condition: Good
Diet: As tolerated and Regular
Activity: As tolerated
Driving Restrictions: As prior to admission
Bathing Restrictions: None
Referrals:
Janae Valadez DO [Family Provider] - in less than 1 week
Steven Portillo MD [Active] - in one week
Additional Discharge Medication Instructions: continue prednisone until you see hematology
Prescriptions:
New
prednisone 20 mg Tablet
80 mg PO DAILY Qty: 60 0RF
Continued
cyclobenzaprine 10 mg Tablet
10 mg PO HS
atorvastatin 10 mg Tablet
10 mg PO DAILY
meloxicam 15 mg Tablet
15 mg PO DAILY
amlodipine 2.5 mg Tablet
2.5 mg PO DAILY
valacyclovir 500 mg Tablet
500 mg PO HS
aspirin 81 mg Tablet,Delayed Release (Dr/Ec)
81 mg PO DAILY
losartan-hydrochlorothiazide 100-25 mg Tablet
1 tab PO DAILY
isosorbide mononitrate 30 mg Tablet Extended Release 24 Hr
15 mg PO DAILY
Discharge Orders:
Discharge Patient (As Directed); Ordered 11/03/24
Ordered By: Rosalinda Yoder
Discharge Date and Time
Print Language: SAUDI ARABIAN
[2024-11-04 06:10] LABS: Erythropoietin (EPO) 63 mU/mL (4-27); Haptoglobin <10 mg/dL (30-200)
[2024-11-05 11:35] LABS: Number Of Markers 26 markers; Source Blood
[2024-11-05 15:54] LABS: Albumin 3.86 g/dL (3.75-5.01); Alpha 1 Globulin 0.27 g/dL (0.19-0.46); Alpha 2 Globulin 0.44 g/dL (0.48-1.05); Free Kappa Light Chains,Quant 29.03 mg/L (3.30-19.40); Free Lambda Light Chains,Quant 16.91 mg/L (5.71-26.30); IgA 173 mg/dL (68-408); IgG 739 mg/dL (768-1632); IgM 106 mg/dL (35-263); Immunofixation Electrophoresis IFE Done; Kappa/Lambda Fr Light Ratio 1.72 (0.26-1.65); Total Protein-Electrophoresis 5.9 g/dL (6.3-8.2)
== END 2024-11-03 19:22 | disposition home or self-care (01) | DRG 809 ==
LOC: 3 WEST ACU 17:57
PROVIDERS: Student in an Organized Health Care Education/Training Program; ADMITTING PHYSICIAN Hospitalist; ATTENDING PHYSICIAN Internal Medicine; EMERGENCY PHYSICIAN Emergency Medicine; FAMILY PHYSICIAN Family Medicine; OTHER PHYSICIAN Internal Medicine Gastroenterology; OTHER PHYSICIAN Internal Medicine Hematology & Oncology
PROC: 30233N1 Transfusion of Nonautologous Red Blood Cells into Peripheral Vein, Percutaneous Approach (ICD-10-PCS; 2024-11-03)
DX: D59.12 Cold autoimmune hemolytic anemia (principal); I24.89 Other forms of acute ischemic heart disease; D53.9 Nutritional anemia, unspecified; R79.89 Other specified abnormal findings of blood chemistry; R53.1 Weakness; I10 Essential (primary) hypertension; B00.9 Herpesviral infection, unspecified; M19.90 Unspecified osteoarthritis, unspecified site; Z80.0 Family history of malignant neoplasm of digestive organs; Z90.49 Acquired absence of other specified parts of digestive tract; Z91.018 Allergy to other foods; Z79.82 Long term (current) use of aspirin
CPT/HCPCS: 80053; 82248; 82607; 82668; 82728; 82746; 82784; 83010; 83521; 83540; 83550; 83615; 84155; 84165; 85014; 85018; 85025; 85045; 86157; 86334; 86850; 86870; 86880; 86900; 86901; 86920; 99285; P9016